=== PATIENT | male | born 1960 | race Caucasian/White ===

== ENCOUNTER 2024-07-02 01:18 | Day surgery (SDC) | payer MEDICARE, SELFPAY ==
[2024-07-02] VITALS (17 sets, daily range): BP systolic 119–179; BP diastolic 74–91; PULSE 69–80; RESP 16–22; TEMP 36.5–37.3; O2SAT 92–100
--- NOTE | ~2024-07-02 | XR_ITS ---
INTRAOPERATIVE FLUOROSCOPY: CLINICAL HISTORY: 63 years old Male; LEFT STONE PROCEDURE COMMENTS: Limited intraoperative fluoroscopy of the lower abdomen was performed. CUMULATIVE DOSE: 13.3 mGy FLUOROSCOPY TIME: 28 seconds FINDINGS/IMPRESSION: Please refer to operative note for further details. Reviewed, dictated and finalized at location A.
--- NOTE | ~2024-07-02 | CT_ITS ---
CLINICAL INDICATION: Lower abdominal pain COMPARISON: None. TECHNIQUE: Multiple contiguous axial images of the abdomen and pelvis were performed following the ad ministration of with 100 mL Omnipaque-350 intravenous contrast The dose-length product (DLP) was 961.04 mGy-cm. Automated exposure control and iterative reconstruction technique were employed. FINDINGS/OBSERVATIONS: Visualized lower thorax: Trace bibasilar atelectasis and scar. The remainder of the lung bases are clear. The heart is of normal size, without pericardial effusion. Small hiatal hernia is present. Liver: The liver demonstrates homogeneous enhancement and is enlarged measuring 20 cm in longitudinal dimens ion. Gallbladder and biliary system: The gallbladder is only minimally distended, and otherwise unremarkable. Pancreas: The pancreas enhances homogeneously without ductal dilatation. Spleen: The spleen enhances homogeneously and is not enlarged measuring 11 cm in longitudinal dimension. Kidneys: Significant left-sided hydroureteronephrosis extending to the distal left ureter where a 9.4 mm stone is identified. Adrenal glands: Unremarkable. Gastrointestinal tract: Colonic diverticulosis without surrounding inflammatory change. Hyperemia and mild distention of multiple fluid-filled small bowel loops, to the left of midline, lik kaitlynn reactive. Appendix: The air-filled appendix is of normal caliber (axial series, images 110 through 122). Vasculature: Unremarkable. Lymph nodes: No pathologically enlarged or morphologically suspicious lymph nodes within the retroperitoneum or at the root of the mesentery. Pelvic structures: The bladder is distended, and otherwise unremarkable. The prostate gland is not enlarged. Body wall and musculoskeletal: Small fat-containing umbilical hernia. No significant degenerative disease within the lower thoracic or lumbosacral spine. IMPRESSION: Severe left-sided hydroureteronephrosis extending to the distal left ureter where a 9 mm stone is cole ntified. Reviewed, dictated and finalized at location [] IMPRESSION: Severe left-sided hydroureteronephrosis extending to the distal left ureter whe re a 9 mm stone is identified.
[2024-07-02 05:48] LABS: Basophils Percent Auto 0.1 % (0.2-1.2); Eosinophils Percent Auto 0.1 % (0-4.4); Hematocrit 45.1 % (42.0-52.0); Hemoglobin 14.4 g/dL (14.0-18.0); Immature Granulocyte Absolute 0.09 K/mm3 (0.00-0.031); Immature Granulocyte Percent A 0.6 % (0-0.5); Lymphocytes Absolute Auto 1.47 K/mm3 (0.9-3.2); Lymphocytes Percent Auto 10.1 % (18.3-44.2); Mean Corpuscular HGB Conc 31.9 g/dl (32-36); Mean Corpuscular Hemoglobin 30.9 pg (26-34); Mean Corpuscular Volume 96.8 fl (80-100); Mean Platelet Volume 9.8 fl (7.4-10.4); Monocytes Absolute Auto 0.4 K/mm3 (0.1-0.6); Monocytes Percent Auto 2.5 % (2.6-8.5); Neutrophils Absolute Auto 12.6 K/mm3 (1.3-6.7); Neutrophils Percent Auto 86.6 % (45.5-73.1); Platelet Count Result 220 k/mm3 (150-375); Red Blood Count 4.66 M/mm3 (4.6-6.20); Red Cell Distribution Width 12.9 % (11.5-14.5); White Blood Count 14.5 K/mm3 (4.5-10.0)
[2024-07-02 05:58] LABS: Alanine Aminotransferase 31 U/L (6-50); Albumin Level 4.6 g/dL (3.5-5.1); Alkaline Phosphatase 92 U/L (38-126); Anion Gap 11 mmol/L (4-12); Aspartate Amino Transferase 31 U/L (17-59); Bilirubin,Total 0.6 mg/dL (0.2-1.3); Blood Urea Nitrogen 24 mg/dL (9-20); Calcium 9.4 mg/dL (8.4-10.2); Carbon Dioxide 25 mmol/L (22-30); Chloride 102 mmol/L (98-107); Estimated CRCL calculation 50 ml/min; Estimated Glomerular Filt Rate 42; Glucose 143 mg/dL (65-110); Lipase 834 U/L (23-300); Potassium 4.5 mmol/L (3.4-5.0); Sodium 138 mmol/L (137-145)
[2024-07-02] MEDS: SODIUM CHLORIDE 0.9% IV 1,000 ML 999 ML IV CONT (07:58)
[2024-07-02 08:03] LABS: Add Urine Microscopic? YES; Appearance Urine Clear (Clear); Bacteria Urine None Seen /hpf; Bilirubin Urine Negative (Negative); Blood Urine 3+ (Negative); Color Urine Yellow (Yellow); Glucose Urine UA Negative (Negative); Ketones Urine Trace mg/dL (Negative); Leukocyte Esterase Ur Negative LEU/UL (Negative); Nitrate Urine Negative (Negative); Non Pathogenic Casts 0-2; Protein Urine Trace mg/dL (Negative); RBC Urine 51-100 /hpf (0-2); Specific Grav Ur 1.031 (1.001-1.035); Squamous Epithelial Cell Urine None Seen /hpf (Few); WBC Urine 0-5 /hpf (0-3); pH Urine 5.5 (5.0-9.0)
--- NOTE | 2024-07-02 09:02 | ED_ITS ---
HPI - General Adult General Chief complaint: Abdominal Pain Stated complaint: lower abdominal pain, nausea Time Seen by Provider: 07/02/24 07:07 History of Present Illness HPI narrative: Patient is a 63-year-old male who presents ER with lower abdominal pain. Midline and left-sided. Symptoms began last night. Feels some mild nausea. Also has pressure and discomfort like he needs to have a bowel movement but he cannot. No history of diverticulitis. He does have history of kidney stones when he was in college. No urinary frequency urgency or dysuria. Related Data Allergies Allergy/AdvReac Type Severity Reaction Status Date / Time No Known Allergies Allergy Verified 07/02/24 01:20 Review of Systems 2 Review of Systems: All systems reviewed & are unremarkable except as noted in HPI and below Constitutional: Constitutional: Reports no additional constitutional complaints Cardiovascular: Cardiovascular: Reports no additional cardiovascular complaints Respiratory: Respiratory: Reports no additional respiratory complaints Gastrointestinal: Gastrointestinal: Reports no additional gastrointestinal complaints Genitourinary: Genitourinary: Reports no additional male genitourinary complaints PMFSH Past Medical History Medical History (Updated 07/02/24 @ 09:21 by Maurilio Pacheco MD) Hyperlipidemia Kidney stones Exam 2 Narrative: GENERAL: Well-appearing, well-nourished, and in no acute distress. HEAD: Normocephalic, atraumatic. ENT: Mucous membranes moist. CHEST: Clear to auscultation. No respiratory distress. HEART: Regular rate and rhythm. Normal peripheral pulses. ABDOMEN: Soft, nontender, nondistended. EXTREMITIES: Normal range of motion. No edema. NEURO: Alert and oriented x3. PSYCH: Normal mood and affect. Course Course Emergency Course: 0900: Patient resting comfortably. Informed of lab and imaging results. No epigastric pain or pain with eating that would indicate pancreatitis. No CT evidence pancreatitis. He does have a kidney stone that is 9 mm that is passing on left side. Will contact Urology. Patient has been NPO since yesterday evening around 6:00 p.m. 0919: Pain increasing, will give morphine. Discussed with urology who will take patient to the OR. Vital Signs Vital signs: Vital Signs Temperature 97.9 F 07/02/24 01:21 Pulse Rate 73 07/02/24 01:21 Respiratory Rate 18 07/02/24 01:21 Blood Pressure 149/88 H 07/02/24 01:21 Pulse Oximetry 100 07/02/24 01:21 Oxygen Delivery Room Air 07/02/24 01:21 Temperature 97.9 F 07/02/24 01:21 Pulse Rate 74 07/02/24 05:47 Respiratory Rate 16 07/02/24 05:47 Blood Pressure 152/91 H 07/02/24 05:47 Pulse Oximetry 98 07/02/24 05:47 Oxygen Delivery Room Air 07/02/24 01:21 Medical Decision Making Vital Signs Vital Signs: Vital Signs Temperature 97.9 F 07/02/24 01:21 Pulse Rate 73 07/02/24 01:21 Respiratory Rate 18 07/02/24 01:21 Blood Pressure 149/88 H 07/02/24 01:21 Pulse Oximetry 100 07/02/24 01:21 Oxygen Delivery Room Air 07/02/24 01:21 Temperature 97.9 F 07/02/24 01:21 Pulse Rate 74 07/02/24 05:47 Respiratory Rate 16 07/02/24 05:47 Blood Pressure 152/91 H 07/02/24 05:47 Pulse Oximetry 98 07/02/24 05:47 Oxygen Delivery Room Air 07/02/24 01:21 Lab Data 07/02/24 05:42 07/02/24 05:42 Labs: Lab Results 07/02/24 07/02/24 Range/Units 05:42 07:56 WBC 14.5 H (4.5-10.0) K/mm3 RBC 4.66 (4.6-6.20) M/mm3 Hgb 14.4 (14.0-18.0) g/dL Hct 45.1 (42.0-52.0) % MCV 96.8 (80-100) fl MCH 30.9 (26-34) pg MCHC 31.9 L (32-36) g/dl RDW 12.9 (11.5-14.5) % Plt Count 220 (150-375) k/mm3 MPV 9.8 (7.4-10.4) fl Immature Gran % (Auto) 0.6 H (0-0.5) % Neut % (Auto) 86.6 H (45.5-73.1) % Lymph % (Auto) 10.1 L (18.3-44.2) % Sanders % (Auto) 2.5 L (2.6-8.5) % Eos % (Auto) 0.1 (0-4.4) % Baso % (Auto) 0.1 L (0.2-1.2) % Lymph # (Auto) 1.47 (0.9-3.2) K/mm3 Sanders # (Auto) 0.4 (0.1-0.6) K/mm3 Eos # (Auto) 0.0 (0-0.3) K/mm3 Baso # (Auto) 0.0 (0.0-0.1) K/mm3 Abs Immat Gran (auto) 0.09 H (0.00-0.031) K/mm3 Absolute Neuts (auto) 12.6 H (1.3-6.7) K/mm3 Absolute Nucleated RBC 0.000 (0.0-0.012) K/mm3 Nucleated RBC % 0.0 (0.0-0.2) % Sodium 138 (137-145) mmol/L Potassium 4.5 (3.4-5.0) mmol/L Chloride 102 (98-107) mmol/L Carbon Dioxide 25 (22-30) mmol/L Anion Gap 11 (4-12) mmol/L BUN 24 H (9-20) mg/dL Creatinine 1.65 H (0.7-1.3) mg/dL Estim Creat Clear Calc 50 ml/min Estimated GFR 42 L (59 - ) Glucose 143 H (65-110) mg/dL Calcium 9.4 (8.4-10.2) mg/dL Total Bilirubin 0.6 (0.2-1.3) mg/dL AST 31 (17-59) U/L ALT 31 (6-50) U/L Alkaline Phosphatase 92 (38-126) U/L Total Protein 8.0 (6.3-8.2) g/dL Albumin 4.6 (3.5-5.1) g/dL Lipase 834 H (23-300) U/L Urine Color Yellow (Yellow) Urine Appearance Clear (Clear) Urine pH 5.5 (5.0-9.0) Ur Specific [place] 1.031 (1.001-1.035) Urine Protein Trace (Negative) mg/dL Urine Glucose (UA) Negative (Negative) mg/dL Urine Ketones Trace H (Negative) mg/dL Ur Blood (Man) 3+ H (Negative) Urine Nitrate Negative (Negative) Urine Bilirubin Negative (Negative) Urine Urobilinogen 1.0 (<2.0) mg/dL Leukocyte Esterase Rfl Negative (Negative) LIAT/UL Urine RBC 51-100 H (0-2) /hpf Urine WBC 0-5 (0-3) /hpf Ur Squamous Epith Cells None seen (Few) /hpf Urine Bacteria None seen /hpf Urine Casts 0-2 Imaging Data Radiologist's impression: ITS Impressions Abdomen/Pelvis CT 07/02/24 07:48 IMPRESSION: Severe left-sided hydroureteronephrosis extending to the distal left ureter where a 9 mm stone is identified. Discharge Plan Discharge Clinical Impression: Ureterolithiasis Patient Disposition: Still a Patient Condition: Stable Patient Language: Puerto Rican Follow-up/Referrals: UNKNOWN,DOCTOR [Primary Care Provider] -
--- OUTSIDE RECORDS SUMMARY | 2024-07-02 09:04 | XMS_ITS | Clinical Summary ---
Author Organization [facility] Building [facility] Address [address] [place] [address] Care Team Providers Care Chemist Instrumentation Name Role Phone Malcolm Reynoso DO Primary Care Provider + [phone] Allergies No known active allergies Medications atorvastatin (LIPITOR) 10 mg tablet Take 10 mg by mouth daily 3 09/16/2018 Active escitalopram (LEXAPRO) 20 mg tablet Take 20 mg by mouth daily 0 08/22/2018 Active glucosamine/D3/b oswellia lissette (OSTEO BI-FLEX, 5-LOXIN, ORAL) Take by mouth Active Active Problems Problem Noted Date Diagnosed Date Acute frontal sinusitis 04/04/2015 Overview (06/16/2016): Acute frontal sinusitis, recurrence not specified Cough 04/04/2015 Overview (06/16/2016): Cough Surgical History Surgery Date Site/Laterality Comments ELBOW SURGERY 01/05/1992 - 02/03/1992 HERNIA REPAIR 03/06/2013 - 03/05/2014 Medical History Medical History Date Comments Hypercholesteremia Kidney stone Family History Medical History Relation Name Comments Dementia Other Relation Name Status Comments Other Social History Tobacco Use Types Packs/Day Years Used Date Smoking Tobacco: Former Cigarettes 0.5 30 0 09/1988 - 09/2018 Smokeless Tobacco: Never Alcohol Use Standard Drinks/Week Comments Yes 0 (1 standard drink = 0.6 oz pur e alcohol) Personal Safety Answer Date Recorded Getting School Help Needed Not on file 05/20 Sex and Gender Information Value Date Recorded Sex Assigned at Not on file 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 Gender Identity Not on file Sexual Orientation Not on file Obstetrics History Last Filed Vital Signs Vital Sign Reading Time Taken Comments Blood Pressure 121/80 11/01/2018 10:01 AM CDT Pulse 78 11/01/2018 10:01 AM CDT Temperature - - Respiratory Rate - - Oxygen Saturation 97% 04/04/2015 3:48 PM INTERNAL SALES ENGINEER Inhaled Oxygen Concentration - - Weight 104.3 kg (230 lb) 11/01/2018 10:01 AM CDT Height 177.8 cm (5' 10 ) 11/01/2018 10:01 AM CDT Body Mass Index 33 11/01/2018 10:01 AM CDT Plan of Treatment Not on file Insurance HMO Care Teams Chemist Instrumentation Relationship Specialty Start Date End Date Malcolm Reynoso DO [address] [place] [id number] PCP - General Family Practice 11/01/18
--- OUTSIDE RECORDS SUMMARY | 2024-07-02 09:04 | XMS_ITS | Clinical Summary ---
Author Organization [facility] Care Team Providers Care Psychological Science Professor Name Role Phone CassiusMalcolm crump Myles PEREZ Primary Care Provider [phone] Allergies No known active allergies Medications No known medications Active Problems Problem Noted Date Diagnosed Date Tobacco use disorder Umbilical hernia Social History Tobacco Use Types Packs/Day Years Used Date Smoking Tobacco: Never Assessed Sex and Gender Information Value Date Recorded Sex Assigned at Not on file Legal Sex Male 7:19 AM CDT Gender Identity Not on file Sexual Orientation Not on file Plan of Treatment Health Maintenance Due Date Last Done Comments Hepatitis C Virus (HCV) Screening 1960 TdaP Immunization 1960 Colonoscopy 11/08/2003 Colorectal Cancer Screening 11/08/2003 Cologuard 2008 Immunochemical Fecal Occult Blood 2008 Pneumococcal Immunization (5 0+ years) (1 of 1 - PCV) 2008 Zoster Immunization (1 of 2) 2008 Influenza Immunization (#1) 11/05/202312/05, 12/24/2015 SARS-COV-2 Immunization (3 - 2023- season) 2023 05/28/2020, 05/07/2020 Respiratory Syncytial Virus (RSV) Immunization (Adult) (1 - 1-dose 75+ series) 2033 Hepatitis B Immunization Aged Out No longer eligible based on patient's age to complete this topic Meningococcal Immunization (ACWY) Aged Out No longer eligible b ased on patient's age to complete this topic Rotavirus Immunization Aged Out No lo nger eligible based on patient's age to complete this topic Insurance [employer] Care Teams Psychological Science Professor Relationship Specialty Start Date End Date Malcolm Reynoso DO [address] [place] [id number] PCP - General Family Medicine 01/21/21
--- OUTSIDE RECORDS SUMMARY | 2024-07-02 09:04 | XMS_ITS | Referral Summary ---
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 Gender Identity Not on file Sexual Orientation Not on file Last Filed Vital Signs Vital Sign Reading Time Taken Comments Blood Pressure 121/80 11/01/2018 10:01 AM CDT Pulse 78 11/01/2018 10:01 AM CDT Temperature - - Respiratory Rate - - Oxygen Saturation 97% 04/04/2015 3:48 PM SEAT SCOOPER MACHINE Inhaled Oxygen Concentration - - Weight 104.3 kg (230 lb) 11/01/2018 10:01 AM CDT Height 177.8 cm (5' 10 ) 11/01/2018 10:01 AM CDT Body Mass Index 33 11/01/2018 10:01 AM CDT Plan of Treatment Not on file [facility] Care Teams Double End Chucking Machine Operator Relationship Specialty Start Date End Date Malcolm Reynoso DO [address] [place] [id number] PCP - General Family Practice 11/01/18
--- OUTSIDE RECORDS SUMMARY | 2024-07-02 09:04 | XMS_ITS | Clinical Summary ---
Author Organization [facility] Address [address] [place] [address] Care Team Providers Care Collar Starcher Name Role Phone Unavailable Primary Care Provider Unavailabl e Source Comments [facility],non-owned Affiliates and Associated Physician Practices is amultiple site organization consisting of ambulatory clinics and hospital sitesin [place], [place], [place] and [place]. This disclosure is being madepursuant to the Care Everywhere program and may not contain all information available regarding this patient. 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 Gender Identity Not on file Sexual Orientation Not on file Plan of Treatment Health Maintenance Due Date Last Done Comments COLOGUARD (AGES 45-75) - COL ON CA SCREENING 1958 COLON MONITORING 1958 COLONOSCOPY - COLON CA SCREENING 1958 CT COLONOGRAPHY - COLON CA SCREENING 1958 Colorectal Cancer Screening 1958 FIT - COLON CA SCREENING 1958 FLEX SIG - COLON CA SCREENING 1958 LIPID TESTING 1958 HIV SCREENING 1973 HEPATITIS C SCREENING 11/02/1976 DTAP/TDAP/TD VACCINES (1 - Tdap) 1977 PNEUMOCOCCAL VACCINE 50+ (1 of 1 - PCV) 2008 ZOSTER VACCINE (1 of 2) 2008 COVID-19 VACCINE ( - 2023-2 5 season) 2023 DEPRESSION SCREENING 03/06/2024 INFLUENZA VACCINE (Season Ended) 2024 Respiratory Syncytial Virus (RSV) Vaccine Pt: or over 60 yrs (1 - 1-dose 75+ series) 2033 HEPATITIS B VACCINE Aged Out No longe r eligible based on patient's age to complete this topic HIB VACCINE Aged Out No longer eligi ble based on patient's age to complete this topic HPV VACCINE Aged Out No longer eligi ble based on patient's age to complete this topic MENINGOCOCCAL (Group B) VACC INE SHARED DECISION-MAKING Aged Out No longer eligibl e based on patient's age to complete this topic MENINGOCOCCAL GROUPS A/C/Y/W VACCINE Aged Out No longer eligible b ased on patient's age to complete this topic Insurance [employer]
--- OUTSIDE RECORDS SUMMARY | 2024-07-02 09:04 | XMS_ITS | Encounter Summary ---
Author Organization [facility] Address [address] [place] [address] Care Team Providers Care Security Public Safety Officer Name Role Phone Unavailable Primary Care Provider Unavailabl e Encounter Details Date Type Department Care Team (Late st Contact Info) Description 10/17/2022 Lab Requisition [facility] - DermPath Lab [address] [place] [address] Roc Moseley MD [address] [place] [phone] Social History Tobacco Use Types Packs/Day Years Used Date Smoking Tobacco: Never Assessed Sex and Gender Information Value Date Recorded Sex Assigned at Not on file 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 Gender Identity Not on file Sexual Orientation Not on file documented as of this encounter Plan of Treatment Not on file documented as of this encounter Procedures Procedure Name Priority Date/Time Associated Diagnosis Comments DERMATOPATHOLOGY Routine 10/12/2022 12:0 0 AM CDT documented in this encounter Results * DERMATOPATHOLOGY (10/12/2022 12:00 AM CDT) Case Report Dermatopathology Report Case: [id number] Authorizing Provider: Roc Moseley MD Collected: 10/12/2022 12:00 AM Ordering Location: [facility] DermPath Lab Received: 10/17/2022 11:26 AM Pathologist: Ivan Sanchez MD Specimen: Skin, right sole 4:58 PM CDT DERMATOPATHOLOGY LABORATORY Final Diagnosis Specimen A. SKIN, right sole: COMPOUND MELANOCYTIC NEVUS, OF ACRAL SKIN (D22.71) PRESENT AT MARGIN (see microscopic description and comment) 3 4:58 PM T DERMATOPATHOLOGY LABORATORY Clinical History Acral Lentigo, Nevus, R/O Neoplasm. Check Margins. 3 4:58 PM T DERMATOPATHOLOGY LABORATORY Gross Description Specimen A: Received is one formalin filled container labeled with the patient's name and designated right sole. The specimen consists of a shave biopsy measuring 5x6x2 mm. Jar 0. 3 4:58 PM T DERMATOPATHOLOGY LABORATORY Microscopic Description Specimen A. SKIN, right sole: Sections show acral type skin with collections of melanocytes at the dermal-epidermal junction that are forming fairly well defined th ques. Melanocytes are also present in the upper dermis. This lesion is present at the margin of the specimen. COMMENT: If this specimen is sampled from a larger lesion, these findings may not be service center representative of the entire lesion. Clinicopathologic correlation is recommended. 3 4:58 PM T DERMATOPATHOLOGY LABORATORY Disclaimer An external and internal positive and negative controls are appropriate for the histochemical, immunohistochemical and immunofluorescence stain(s) in this case (if any), except where stated explicitly. The performance characteristics of the stain(s) cited in this report were developed and its performance characteristic determined by the Dermatopathology Laboratory at [facility], directed by Dr. Bud Sanchez. These tests need not be, and therefore are not, approved by the [place] Food and Drug Administration. The tests are used for clinical purposes. Billing Codes Specimen Charges Stain Charges 19303 1 3 4:58 PM CDT DERMATOPATHOLOGY LABORATORY Embedded Images 3 4:58 PM CDT DERMATOPATHOLOGY LABORATORY Pathology/Cytolog y TISSUE SPECIMEN FROM SKIN / Unknown 10/12/2022 10/17/2022 11:26 AM CDT Roc Moseley MD LAB - PATHOLOGY/CYTOLOGY ORDERAB LES Final Result DERMATOPATHOLOGY LABORATORY [facility] - Department of Dermatology [address], [address] [phone] documented in this encounter Visit Diagnoses Not on filedocumented in this encounter
[2024-07-02] MEDS: MORPHINE SULFATE (*CRX) 4 MG/ML INJ IV PUSH (09:54)
--- NOTE | 2024-07-02 10:32 | WPDURCON ---
Assessment and Plan Assessment and plan (1) Left ureteral calculus: Code(s): N20.1 - Calculus of ureter Status: Acute Assessment and Plan: Proceed with cystoscopy, left retrograde, left ureteroscopy with laser, stone extraction, stent placement. Urology Consult Note HPI Date Seen: 07/02/24 Time Seen: 10:33 Primary Care Provider: UNKNOWN,DOCTOR Consult Narrative Reason for consult: 9 mm obstructing left distal ureteral calculus with colic Narrative: Kahlil Pugh is a 63 year old male presented the emergency room with left renal colic. CT scan revealed a 9 mm obstructing distal left ureteral stone. [place] [address] with a creatinine of 1.65. Denied any fevers. Urinalysis is negative. Does have a history of stone many many years ago which he passed. Review of Systems Review of Systems: All systems reviewed & are unremarkable except as noted in HPI and below PMFSH Past Medical History Medical History Hyperlipidemia Kidney stones Meds Home Medications and Allergies Allergies Allergy/AdvReac Type Severity Reaction Status Date / Time No Known Allergies Allergy Verified 07/02/24 01:20 Vital Signs Vital Signs - 24 hr 07/02/24 01:21 07/02/24 05:15 07/02/24 05:47 Temperature 36.6 C Pulse Rate 73 78 74 Respiratory Rate 18 18 16 Blood Pressure 149/88 H 162/87 H 152/91 H Pulse Oximetry 100 96 98 Oxygen Delivery Room Air Exam Const: General: cooperative; No comfortable Resp: Effort & Inspection: normal respiratory effort Cardio: Rate: regular rate Rhythm: regular rhythm Results Labs 07/02/24 05:42 07/02/24 05:42 Labs: Short CBC 07/02/24 Range/Units 05:42 WBC 14.5 H (4.5-10.0) K/mm3 Hgb 14.4 (14.0-18.0) g/dL Hct 45.1 (42.0-52.0) % Plt Count 220 (150-375) k/mm3 BMP 07/02/24 05:42 Sodium 138 Potassium 4.5 Chloride 102 Carbon Dioxide 25 BUN 24 H Creatinine 1.65 H Glucose 143 H Calcium 9.4 Liver Function 07/02/24 Range/Units 05:42 Total Bilirubin 0.6 (0.2-1.3) mg/dL AST 31 (17-59) U/L ALT 31 (6-50) U/L Alkaline Phosphatase 92 (38-126) U/L Albumin 4.6 (3.5-5.1) g/dL Urine 07/02/24 Range/Units 07:56 Urine Color Yellow (Yellow) Urine Appearance Clear (Clear) Urine pH 5.5 (5.0-9.0) Ur Specific [place] 1.031 (1.001-1.035) Urine Protein Trace (Negative) mg/dL Urine Glucose (UA) Negative (Negative) mg/dL
--- NOTE | 2024-07-02 10:35 | WPDHPUPDATE1 ---
History and Physical Update Update Date/Time: 07/02/24 10:35 History and Physical has been reviewed, including an updated exam of the patient. There are NO changes in the patient's condition. Risks, benefits, and alternatives have been discussed and questions answered. Patient agrees to proceed with procedure. Proceed with cystoscopy, left retrograde, left ureteroscopy with possible laser, stent placement
[2024-07-02] MEDS: fentaNYL CITRATE INJ (*CRX) 100 MCG/2 ML VIAL 50 MCG IV PUSH (12:13)
--- NOTE | 2024-07-02 12:14 | ECG_ITS ---
Test Date: 2024-07-02 12:29:24 Measurements Intervals [place] Rate: 73 P: 46 [place]: 160 QRS: 3 QRSD: 86 T: 41 QT: 388 QTc: 429 Interpretive Statements SINUS RHYTHM POSSIBLE LEFT ATRIAL ENLARGEMENT POSSIBLE LEFT VENTRICULAR HYPERTROPHY INFERIOR INFARCT, AGE INDETERMINATE ABNORMAL ECG No previous ECG available for comparison Electronically Signed On 07-02-2024 12:49:54 CDT by Harinder Fontaine D.O.
--- OUTSIDE RECORDS SUMMARY | 2024-07-02 12:28 | XMS_ITS | Encounter Summary ---
Author Organization [facility] Address [address] [place] [address] Care Team Providers Care Senior Interior Designer Name Role Phone Unavailable Primary Care Provider Unavailabl e Encounter Details Date Type Department Care Team (Late st Contact Info) Description 10/17/2022 Lab Requisition [facility] - DermPath Lab [address] [place] [address] Roc Moseley MD [address] [place] [phone] Social History Tobacco Use Types Packs/Day Years Used Date Smoking Tobacco: Never Assessed Sex and Gender Information Value Date Recorded Sex Assigned at Not on file 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] larger lesion, these findings may not be contact representative of the entire lesion. Clinicopathologic correlation [...] characteristic determined by the Dermatopathology Laboratory at [facility], directed by Dr. Bud Sanchez. These tests need not be, and therefore are not, approved by the [place] Food and Drug Administration. The tests are used for clinical purposes. Billing Codes Specimen Charges Stain Charges 58986 1 3 4:58 PM CDT DERMATOPATHOLOGY LABORATORY Embedded Images 3 4:58 PM CDT DERMATOPATHOLOGY LABORATORY Pathology/Cytolog y TISSUE SPECIMEN FROM SKIN / Unknown 10/12/2022 10/17/2022 11:26 AM CDT Roc Moseley MD LAB - PATHOLOGY/CYTOLOGY ORDERAB LES Final Result DERMATOPATHOLOGY LABORATORY [facility] - Department of Dermatology [address] [phone] documented in this encounter Visit Diagnoses Not on filedocumented in this encounter
--- OUTSIDE RECORDS SUMMARY | 2024-07-02 12:28 | XMS_ITS | Clinical Summary ---
Author Organization [facility] Address [address] [place] [address] Care Team Providers Care Speed Belt Sander Tender Name Role Phone Unavailable Primary Care Provider Unavailabl e Source Comments [facility],non-owned Affiliates and Associated Physician Practices is amultiple site organization consisting of ambulatory clinics and hospital sitesin [place], [place], [place] and [place]. This disclosure is being madepursuant to the Care Everywhere program and may not contain all information available regarding this patient. 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
--- OUTSIDE RECORDS SUMMARY | 2024-07-02 12:28 | XMS_ITS | Clinical Summary ---
Author Organization [facility] Care Team Providers Care Steam Tunnel Feeder Name Role Phone CassiusMalcolm crump Myles PEREZ Primary Care Provider [phone] Allergies No known active allergies Medications No [...] patient's age to complete this topic Insurance [employer] Care Teams Steam Tunnel Feeder Relationship Specialty Start Date End Date Malcolm Reynoso DO [address] [place] [phone] PCP - General Family Medicine 01/21/21
--- OUTSIDE RECORDS SUMMARY | 2024-07-02 12:28 | XMS_ITS | Referral Summary ---
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 Gender Identity Not on file Sexual Orientation Not on file Last Filed Vital Signs Vital Sign Reading Time Taken Comments Blood Pressure 121/80 11/01/2018 10:01 AM CDT Pulse 78 11/01/2018 10:01 AM CDT Temperature - - Respiratory Rate - - Oxygen Saturation 97% 04/04/2015 3:48 PM DATA CENTER OPERATOR Inhaled Oxygen Concentration - - Weight 104.3 kg (230 lb) 11/01/2018 10:01 AM CDT Height 177.8 cm (5' 10 ) 11/01/2018 10:01 AM CDT Body Mass Index 33 11/01/2018 10:01 AM CDT Plan of Treatment Not on file [facility] Care Teams Counter Hand Relationship Specialty Start Date End Date Malcolm Reynoso DO [address] [place] [id number] PCP - General Family Practice 11/01/18
--- OUTSIDE RECORDS SUMMARY | 2024-07-02 12:28 | XMS_ITS | Clinical Summary ---
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 Gender Identity Not on file Sexual Orientation Not on file Obstetrics History Last Filed Vital Signs Vital Sign Reading Time Taken Comments Blood Pressure 121/80 11/01/2018 10:01 AM CDT Pulse 78 11/01/2018 10:01 AM CDT Temperature - - Respiratory Rate - - Oxygen Saturation 97% 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
[2024-07-02] MEDS: LACTATED RINGERS 1,000 ML 30 ML IV CONT (12:29)
--- NOTE | 2024-07-02 13:35 | WPDANESEPPF ---
Anes - Initial Pre Proc Eval Procedure: Operation Date: 07/02/24 13:00 Proposed Procedures p Cystoscopy, Left Ureteroscopy, Possible Left Retrograde Pyelogram, Possible Left Stone Extraction, Possible Left Stent Placement, Possible Holmium Laser Procedure - lFynn Khan MD Date/Time: 07/02/24 13:35 Surgeon: Flynn Khan MD Pre Op Diagnosis: lower abdominal pain, nausea Patient Data Age: 63 Gender: M Height: 1.78 m Weight: 107.2 kg Last Vital Signs Temp 37.3 C 07/02/24 12:00 Pulse 80 07/02/24 12:00 Resp 16 07/02/24 12:00 BP 155/89 H 07/02/24 12:00 Pulse Ox 100 07/02/24 12:00 O2 Del Method Room Air 07/02/24 12:00 Allergies Allergy/AdvReac Type Severity Reaction Status Date / Time No Known Allergies Allergy Verified 07/02/24 12:27 Laboratory Tests 07/02/24 07/02/24 05:42 07:56 WBC 14.5 H K/mm3 (4.5-10.0) RBC 4.66 M/mm3 (4.6-6.20) Hgb 14.4 g/dL (14.0-18.0) Hct 45.1 % (42.0-52.0) MCV 96.8 fl (80-100) MCH 30.9 pg (26-34) MCHC 31.9 L g/dl (32-36) RDW 12.9 % (11.5-14.5) Plt Count 220 k/mm3 (150-375) MPV 9.8 fl (7.4-10.4) Immature Gran % (Auto) 0.6 H % (0-0.5) Neut % (Auto) 86.6 H % (45.5-73.1) Lymph % (Auto) 10.1 L % (18.3-44.2) [place] % (Auto) 2.5 L % (2.6-8.5) Eos % (Auto) 0.1 % (0-4.4) Baso % (Auto) 0.1 L % (0.2-1.2) Lymph # (Auto) 1.47 K/mm3 (0.9-3.2) [place] # (Auto) 0.4 K/mm3 (0.1-0.6) Eos # (Auto) 0.0 K/mm3 (0-0.3) Baso # (Auto) 0.0 K/mm3 (0.0-0.1) Abs Immat Gran (auto) 0.09 H K/mm3 (0.00-0.031) Absolute Neuts (auto) 12.6 H K/mm3 (1.3-6.7) Absolute Nucleated RBC 0.000 K/mm3 (0.0-0.012) Nucleated RBC % 0.0 % (0.0-0.2) Sodium 138 mmol/L (137-145) Potassium 4.5 mmol/L (3.4-5.0) Chloride 102 mmol/L (98-107) Carbon Dioxide 25 mmol/L (22-30) Anion Gap 11 mmol/L (4-12) BUN 24 H mg/dL (9-20) Creatinine 1.65 H mg/dL (0.7-1.3) Estim Creat Clear Calc 50 ml/min Estimated GFR 42 L (59 - ) Glucose 143 H mg/dL (65-110) Calcium 9.4 mg/dL (8.4-10.2) Total Bilirubin 0.6 mg/dL (0.2-1.3) AST 31 U/L (17-59) ALT 31 U/L (6-50) Alkaline Phosphatase 92 U/L (38-126) Total Protein 8.0 g/dL (6.3-8.2) Albumin 4.6 g/dL (3.5-5.1) Lipase 834 H U/L (23-300) Urine Color Yellow (Yellow) Urine Appearance Clear (Clear) Urine pH 5.5 (5.0-9.0) Ur Specific [place] 1.031 (1.001-1.035) Urine Protein Trace mg/dL (Negative) Urine Glucose (UA) Negative mg/dL (Negative) Urine Ketones Trace H mg/dL (Negative) Ur Blood (Man) 3+ H (Negative) Urine Nitrate Negative (Negative) Urine Bilirubin Negative (Negative) Urine Urobilinogen 1.0 mg/dL (<2.0) Leukocyte Esterase Rfl Negative LIAT/UL (Negative) Urine RBC 51-100 H /hpf (0-2) Urine WBC 0-5 /hpf (0-3) Ur Squamous Epith Cells None seen /hpf (Few) Urine Bacteria None seen /hpf Urine Casts 0-2 Patient hx anesthesia problems: none Family hx anesthesia problems: none Results Review: All pre-operative results and documents have been reviewed as part of the pre-operative evaluation. [facility] Past Medical History Medical History Hyperlipidemia Kidney stones Anes - Eval Final PreProcedure Day of Procedure 07/02/24 13:35 Patient weight: obese Heart: regular rate and rhythm Lungs: clear to auscultation Airway: Mallampati scale class II Neurological: alert and oriented Last oral intake: >/= 8 hours ASA classification: II Emergent: no Anesthetic plan: proceed Anesthesia type and monitoring: general LMA and standard monitoring Results Review: All pre-operative results and documents have been reviewed as part of the pre-operative evaluation. Informed Consent: The patient's anesthetic plan and its attendant risks and benefits were discussed with the patient/family/POA. Questions were solicited and answers provided to the satisfaction of the patient/family/POA.
[2024-07-02] MEDS: ceFAZolin 2 GM/D5W 50 ML 2 GM/50 ML BAG IVPB (13:43)
[2024-07-02] MEDS: LIDOCAINE 2% GEL UROJET 10 ML PKG MUCOUS MEM (13:56)
--- NOTE | 2024-07-02 14:31 | W.PM.PROC2 ---
Procedure Note - Detailed Date of Procedure 07/02/24 Pre-op Diagnosis 9 mm distal left ureteral calculus Post-op Diagnosis Same Procedure Performed Cystoscopy, left retrograde, left ureteroscopy with holmium laser, stone extraction, left ureteral stent placement 4.8 Cymraes contour Surgeon Flynn Khan MD Anesthesia General Description of Procedure Patient was taken to the operative suite correctly identified. Once anesthesia was obtained was placed in dorsal lithotomy position and prepped and draped usual sterile fashion. Twenty-two Cymraes scope was inserted the bladder. There were no tumors noted. Left ureteral orifice was cannulated with a guidewire. I dilated the orifice with an 8/10 dilator. Rigid ureteral scope was inserted and the stone was visualized. Using a 200 micron fiber the stone was lasered. The largest stones were retrieved and sent for analysis. Reinspection revealed no residual ureteral stones. Pyelogram was then performed to confirm placement of the stent. 4.8 Cymraes contour stent was then placed with the proximal end coiled in the left renal pelvis and the distal end in the bladder. Bladder was drained. 2% viscous lidocaine was inserted into the urethra patient is taken recovery stable condition. He will follow-up in a week's time for stent removal. This completes dictation. Please send a copy of op note to my office
== END 2024-07-02 16:25 | disposition home or self-care (01) ==
LOC: ANHED 09:22 → ANHSURGERY 11:02
PROVIDERS: Student in an Organized Health Care Education/Training Program; Emergency Provider Emergency Medicine; Visit Provider Urology
PROC: (CPT 52352; principal; 2024-07-02 13:00)
DX: N20.1 Calculus of ureter (principal); E78.5 Hyperlipidemia, unspecified; E66.9 Obesity, unspecified; Z68.33 Body mass index [BMI] 33.0-33.9, adult
CPT/HCPCS: 52356; 36415; 74177; 74420; 80053; 81001; 82365; 83690; 85025; 88300; 93005; 96361; 96374; 99285; C1769; C2617; J0690; J2250; J2270; J3010; J7030; J7120; Q9966; Q9967